=== PATIENT | female | born 1950 | race Two or more races ===

== ENCOUNTER 2019-01-26 09:41 | Emergency (ER) | payer OTHER ==
[~2019-01-26] VITALS: Ht 167.6 cm; Wt 68.0 kg
[2019-01-26] MEDS ORDERED: TOPROL XL50 M1 (10:16)
== END 2019-01-26 15:14 | disposition home or self-care (01) ==
LOC: ER 09:41
DX: J40 Bronchitis, not specified as acute or chronic (principal)

== ENCOUNTER 2019-04-05 08:06 | Outpatient (CLI) | payer OTHER ==
[~2019-04-05 08:06] MED LIST: TOPROL XL50 M1
== END 2019-04-05 08:22 | disposition home or self-care (01) ==
LOC: NUCLEAR 08:06
DX: I20.9 Angina pectoris, unspecified (principal)
CPT/HCPCS: 78452; 93017; A9500